=== PATIENT | male | born 1960 | race Caucasian/White ===

== ENCOUNTER 2017-09-12 16:37 | Emergency (ER) | payer OTHER ==
[~2017-09-12] VITALS: Ht 185.4 cm; Wt 84.8 kg
--- OUTSIDE RECORDS SUMMARY | ~2017-09-12 | XMS | Clinical Summary ---
Demographics + + + | Address | [address] | | | [place] [address] | + + + | Home Phone | | + + + | Preferred Language | Unknown | + + + | Marital Status | Single | + + + | Hindu Affiliation | Unknown | + + + | Race | Unknown | + + + | Ethnic Group | Other Race | + + + Author + + + | Author | [facility] | + + + | Organization | [facility] | + + + | Address | Unknown | + + + | Phone | Unavailable | + + + Care Team Providers + +------+ + | Care Seafood Clerk Name | Role | Phone | + +------+ + PP | Unavailable | + +------+ + Source Comments ANNMARIE is fully live on both [facility] Ambulatory and [facility] InPatient.[facility] Allergies Not on File Current Medications Not on file Active Problems Not on file Social History + +-------+ +--------+------+ | Tobacco Use | Types | Packs/Day | Years | Date | | | | | Used | | + +-------+ +--------+------+ | Never Assessed | | | | | + +-------+ +--------+------+ + + + | Sex Assigned at | Date Recorded | | | | + + + | Not on file | | + + + Plan of Treatment + + + + + | Health Maintenance | Due Date | Last Done | Comments | + + + + + | INFLUENZA VACCINE | | | | | (FLU SHOT) | 7 | | | + + + + + Results Not on filefrom Last 3 Months"
--- OUTSIDE RECORDS SUMMARY | ~2017-09-12 | XMS ---
Demographics + + + | Address | [address] | | | [place] [address] | + + + | Preferred Language | Unknown | + + + | Marital Status | Unknown | + + + | Anabaptism Affiliation | Unknown | + + + | Race | Unknown | + + + | Ethnic Group | Unknown | + + + Author + + + | Author | [facility] | + + + | Organization | [facility] | + + + | Address | [address] | | | [place] [address] | + + + | Phone | | + + + Care Team Providers + + + + | Care Veneer Taping Machine Operator Name | Role | Phone | + + + + Unavailable | Unavailable | + + + + PROBLEMS + + + + + + + + | Type | Condition | ICD9-CM | [id number] | Onset | Condition | SNOMED | | | | Code | Code | Dates | Status | Code | + + + + + + + + | Problem | Dyslipidem | E78.5 | | | Active | [id number] | | | ia | | | | | | + + + + + + + + | Problem | Hepatitis | | B19.20 | | Active | 34023134 | | | C | | | | | | + + + + + + + + | Problem | Colonic | | K63.5 | | Active | 95530099 | | | polyp | | | | | | + + + + + + + + | Assessment | Encounter | | Z13.9 | 18 Oct, | Active | | | | for | | | 2016 | | | | | screening, | | | | | | | | | | | | | | | | unspecifie | | | | | | | | d | | | | | | + + + + + + + + | Assessment | Depression | Z13.89 | | 18 Oct, | Active | [id number] | | | screen | | | 2016 | | | + + + + + + + + | Assessment | CAD | | I25.10 | 18 Oct, | Active | 07052702 | | | (coronary | | | 2016 | | | | | artery | | | | | | | | disease) | | | | | | + + + + + + + + | Problem | Constipati | | K59.00 | | Active | 19596255 | | | on | | | | | | + + + + + + + + | Problem | CAD | | I25.10 | | Active | 00543710 | | | (coronary | | | | | | | | artery | | | | | | | | disease) | | | | | | + + + + + + + + | Problem | Screening | Z12.5 | | | Active | 706667251 | | | for | | | | | | | | prostate | | | | | | | | cancer | | | | | | + + + + + + + + | Problem | Essential | | I10 | | Active | 04822059 | | | (primary) | | | | | | | | hypertensi | | | | | | | | on | | | | | | + + + + + + + + | Problem | Headache | | R51 | | Active | 11091964 | + + + + + + + + | Problem | Anxiety | F41.9 | | | Active | 650932081 | | | disorder | | | | | | + + + + + + + + ALLERGIES + + + + +---------+ | Substance | Reaction | Event Type | Date | Status | + + + + +---------+ | N.K.D.A. | Unknown | Non Drug | Oct, | Unknown | | | | Allergy | | | + + + + +---------+ SOCIAL HISTORY No smoking Hx information available PLAN OF CARE + +---------+ | Activity | Details | + +---------+ +---+ | | +---+ + + + | Pending Test | PSA | + + + | | February 2017,Reason: | + + + VITAL SIGNS + + + + | Height | 74 in | 2016-11-07 | + + + + | Weight | 201.0 lbs | 2016-11-07 | + + + + | BMI | 25.80 kg/m2 | 2016-11-07 | + + + + | Temperature | 97.9 degrees Fahrenheit | 2016-11-07 | + + + + | Heart Rate | 53 /min | 2016-11-07 | + + + + | Blood pressure systolic | 149 mm Hg | 2016-11-07 | + + + + | Blood pressure diastolic | 92 mm Hg | 2016-11-07 | + + + + MEDICATIONS + + + + + + + +--------+ | Medicati | Instruct | Dosage | Frequenc | Start | End Date | Duration | Status | | on | ions | | y | Date | | | | + + + + + + + +--------+ | Clopidog | Orally | 1 tablet | 24h | | | | Active | | rel | Once a | | | | | | | | Bisulfat | day | | | | | | | | e 75 MG | | | | | | | | + + + + + + + +--------+ | Lipitor | Orally | 1 tablet | | | | | Active | | 40 mg | Once a | | | | | | | | | day in | | | | | | | | | the | | | | | | | | | evening | | | | | | | + + + + + + + +--------+ | Magnesiu | | | | | | | Active | | m | | | | | | | | + + + + + + + +--------+ | Lisinopr | Orally | 1 tablet | | | | | Active | | il 20 mg | Once a | | | | | | | | | day in | | | | | | | | | the | | | | | | | | | morning | | | | | | | + + + + + + + +--------+ | Magnesiu | Orally | as | | 18 Apr, | | | Active | | m | daily as | directed | | 2017 | | | | | Citrate | needed | | | | | | | | 1.745 | for | | | | | | | | GM/30ML | constipa | | | | | | | | | tion | | | | | | | + + + + + + + +--------+ | Pepcid | Orally | 1 tablet | 12h | | | | Active | | 20 MG | Twice a | | | | | | | | | day | | | | | | | + + + + + + + +--------+ | Yoga . | | as | | Feb, | | | Active | | | | directed | | 2015 | | | | | | | for | | | | | | | | | anxiety | | | | | | + + + + + + + +--------+ | Aspirin | Oral | 1 tab | 24h | | | | Active | | 81 mg | daily | | | | | | | + + + + + + + +--------+ | Metoprol | Orally | 1 tablet | | | | | Active | | ol | Once a | | | | | | | | Succinat | day in | | | | | | | | e ER 25 | the | | | | | | | | MG | morning | | | | | | | + + + + + + + +--------+ | Misc | Orally | Moringa | | Feb, | | | Active | | Natural | daily | oleifera | | 2016 | | | | | Product | for | 2 | | | | | | | . | anxiety | packets | | | | | | | | | or 2 | | | | | | | | | capsules | | | | | | + + + + + + + +--------+ | Kings Grant | Orally | 2 tablet | 12h | | | | Active | | Carbonat | Twice a | in the | | | | | | | e 300 MG | day | morning | | | | | | | | | and 1 at | | | | | | | | | night | | | | | | + + + + + + + +--------+ RESULTS No Results PROCEDURES + + + + + | Procedure | Date Ordered | Related Diagnosis | Body Site | + + + + + | Administration of | November 07, 2016 | | | | patient-focused | | | | | health risk | | | | | assessment | | | | + + + + + | Est Level III | November 07, 2016 | | | | Intermediate | | | | + + + + + IMMUNIZATIONS No Known Immunizations"
--- OUTSIDE RECORDS SUMMARY | ~2017-09-12 | XMS ---
Demographics + + + | Address | [address] | | | [place] [address] | + + + | Preferred Language | Unknown | + + + | Marital Status | Unknown | + + + | Protestant Affiliation | Unknown | + + + | Race | Unknown | + + + | Ethnic Group | Unknown | + + + Author + + + | Author | [facility] | + + + | Organization | [facility] | + + + | Address | [address] | | | [place] [address] | + + + | Phone | | + + + Care Team Providers + + + + | Care Historiography Professor Name | Role | Phone | + + + + Unavailable | Unavailable | + + + + PROBLEMS +---------+ + + +--------+ + + | Type | Condition | ICD9-CM | NPD14-[id number] | Onset | Condition | SNOMED | | | | Code | Code | Dates | Status | Code | +---------+ + + +--------+ + + | Problem | Colonic | | K63.5 | | Active | 38453815 | | | polyp | | | | | | +---------+ + + +--------+ + + | Problem | Dyslipidem | E78.5 | | | Active | 783712809 | | | ia | | | | | | +---------+ + + +--------+ + + | Problem | Constipati | | K59.00 | | Active | 77210965 | | | on | | | | | | +---------+ + + +--------+ + + | Problem | CAD | | I25.10 | | Active | 28605882 | | | (coronary | | | | | | | | artery | | | | | | | | disease) | | | | | | +---------+ + + +--------+ + + | Problem | Essential | | I10 | | Active | 59847247 | | | (primary) | | | | | | | | hypertensi | | | | | | | | on | | | | | | +---------+ + + +--------+ + + | Problem | Hepatitis | | B19.20 | | Active | 25824278 | | | C | | | | | | +---------+ + + +--------+ + + | Problem | Anxiety | F41.9 | | | Active | 398945576 | | | disorder | | | | | | +---------+ + + +--------+ + + | Problem | Screening | Z12.5 | | | Active | [id number] | | | for | | | | | | | | prostate | | | | | | | | cancer | | | | | | +---------+ + + +--------+ + + ALLERGIES + + + + +---------+ | Substance | Reaction | Event Type | Date | Status | + + + + +---------+ | N.K.D.A. | Unknown | Non Drug | Feb, | Unknown | | | | Allergy | | | + + + + +---------+ SOCIAL HISTORY No smoking Hx information available PLAN OF CARE + +---------+ | Activity | Details | + +---------+ +---+ | | +---+ + + + | Follow Up | 6 Months Reason:null | + + + VITAL SIGNS + + + + | Height | 74 in | 2017-03-19 | + + + + | Weight | 194.4 lbs | 2017-03-19 | + + + + | BMI | 24.96 kg/m2 | 2017-03-19 | + + + + | Temperature | 99.4 degrees Fahrenheit | 2017-03-19 | + + + + | Heart Rate | 65 /min | 2017-03-19 | + + + + | Blood pressure systolic | 137 mm Hg | 2017-03-19 | + + + + | Blood pressure diastolic | 83 mm Hg | 2017-03-19 | + + + + MEDICATIONS + + + + + + + +--------+ | Medicati | Instruct | Dosage | Frequenc | Start | End Date | Duration | Status | | on | ions | | y | Date | | | | + + + + + + + +--------+ | Clopidog | Orally | 1 tablet | | | | | Active | | rel | Once a | | | | | | | | Bisulfat | day in | | | | | | | | e 75 mg | the | | | | | | | | | morning | | | | | | | + + + + + + + +--------+ | Aspirin | Oral | 1 tab | | | | | Active | | 81 mg | daily at | | | | | | | | | night | | | | | | | [...] | | | | | MG | night | | | | | | | [...] + + + + + +--------+ | Moringa | Orally 2 | as | | Feb, | | | Active | | Olifara | packets | directed | | 2016 | | | | | (Heladio) | BID | | | | | | | [...] + + + + + +--------+ | CeraVe - | External | as | 24h | 28 Feb, | | | Active | | | ly Once | directed | | 2016 | | | | | | a day | | | | | | | + + + + + + + +--------+ | KLS | Orally | as | | Feb, | | | Active | | LaxaClea | 17 gm | directed | | 2016 | | | | | r - | daily | | | | | | | | | for | | | | | | | | | constipa | | | | | | | | | tion | | | | | | | + + + + + + + +--------+ | Port Jervis | Orally | 2 tablet | 12h [...] + + + + + +--------+ | Neuro-Ma | Orally | 3 | 24h | Feb, | | | Active | | g | Once a | tablets | | 2016 | | | | | | day | | | | | | | + + + + + + + +--------+ RESULTS No Results PROCEDURES + + + + + | Procedure | Date Ordered | Related Diagnosis | Body Site | + + + + + | EST Pt. Level V | Mar 19, 2017 | | | | Comprehensive | | | | + + + + + | DSCHRG MED/CURRENT | Mar 19, 2017 | | | | MED MERGE | | | | + + + + + | ASPIRIN/OTH | Mar 19, 2017 | | | | ANTITHROMBOTIC [place] | | | | | USED | | | | + + + + + | COLORECTAL CA | Mar 19, 2017 | | | | SCREEN DOC REV | | | | + + + + + IMMUNIZATIONS No Known Immunizations"
--- OUTSIDE RECORDS SUMMARY | ~2017-09-12 | XMS ---
Demographics + + + | Address | [address] | | | [place] [address] | + + + | Preferred Language | Unknown | + + + | Marital Status | Unknown | + + + | Latter-Day Affiliation | Unknown | + + + | Race | Unknown | + + + | Ethnic Group | Unknown | + + + Author + + + | Author | [facility] | + + + | Organization | [facility] | + + + | Address | [address] | | | [place] [address] | + + + | Phone | | + + + Care Team Providers + + + + | Care Buffer Copper Name | Role | Phone | + + + + Unavailable | Unavailable | + + + + PROBLEMS +---------+ + + +--------+ + + | Type | Condition | ICD9-CM | [id number] | Onset | Condition | SNOMED | | | | Code | Code | Dates | Status | Code | +---------+ + + +--------+ + + | Problem | Colonic | | K63.5 | | Active | 27165969 | | | polyp | | | | | | +---------+ + + +--------+ + + | Problem | Dyslipidem | E78.5 | | | Active | 153285519 | | | ia | | | | | | +---------+ + + +--------+ + + | Problem | Constipati | | K59.00 | | Active | 81705978 | | | on | | | | | | +---------+ + + +--------+ + + | Problem | CAD | | I25.10 | | Active | 61472158 | | | (coronary | | | | | | | | artery | | | | | | | | disease) | | | | | | +---------+ + + +--------+ + + | Problem | Essential | | I10 | | Active | 59292067 | | | (primary) | | | | | | | | hypertensi | | | | | | | | on | | | | | | +---------+ + + +--------+ + + | Problem | Hepatitis | | B19.20 | | Active | 64875422 | | | C | | | | | | +---------+ + + +--------+ + + | Problem | Anxiety | F41.9 | | | Active | 819820787 | | | disorder | | | | | | +---------+ + + +--------+ + + | Problem | Screening | Z12.5 | | | Active | 408538627 | | | for | | | | | | | | prostate | | | | | | | | cancer | | | | | | +---------+ + + +--------+ + + ALLERGIES Unknown Allergies SOCIAL HISTORY No smoking Hx information available PLAN OF CARE VITAL SIGNS MEDICATIONS Unknown Medications RESULTS No Results PROCEDURES No Known procedures IMMUNIZATIONS No Known Immunizations"
--- OUTSIDE RECORDS SUMMARY | ~2017-09-12 | XMS | Clinical Summary ---
Demographics + + + | Address | [address] | | | [place] [address] | + + + | Home Phone | | + + + | Preferred Language | Unknown | + + + | Marital Status | Single | + + + | Methodist Affiliation | Unknown | + + + | Race | Unknown | + + + | Ethnic Group | Other Race | + + + Author + + + | Author | [facility] | + + + | Organization | [facility] | + + + | Address | Unknown | + + + | Phone | Unavailable | + + + Care Team Providers + +------+ + | Care Maritime Officer Name | Role | Phone | + +------+ + PP | Unavailable | + +------+ + Source Comments ANNMARIE is fully live on both [facility] and [facility] InPatient.[facility] Allergies Not on File Current Medications Not [...]
--- OUTSIDE RECORDS SUMMARY | ~2017-09-12 | XMS ---
Demographics + + + | Address | [address] | | | [place] [address] | + + + | Preferred Language | Unknown | + + + | Marital Status | Unknown | + + + | Congregational Affiliation | Unknown | + + + | Race | Unknown | + + + | Ethnic Group | Unknown | + + + Author + + + | Author | [facility] | + + + | Organization | [facility] | + + + | Address | [address] | | | [place] [address] | + + + | Phone | | + + + Care Team Providers + + + + | Care Instructional Support Specialist Name | Role | Phone | + + + + Unavailable | Unavailable | + + + + PROBLEMS + + + + + + + + | Type | Condition | ICD9-CM | [id number] | Onset | Condition | SNOMED | | | | Code | Code | Dates | Status | Code | + + + + + + + + | Problem | Dyslipidem | E78.5 | | | Active | 291430846 | | | ia | | | | | | + + + + + + + + | Problem | Hepatitis | | B19.20 | | Active | 55545574 | | | C | | | | | | + + + + + + + + | Problem | Colonic | | K63.5 | | Active | 78570265 | | | polyp | | | | | | + + + + + + + + | Assessment | Abdominal | | R10.32 | 27 November, | Active | 254070976 | | | pain, left | | | 2016 | | | | | lower | | | | | | | | quadrant | | | | | | + + + + + + + + | Assessment | Colonic | | K63.5 | 08 November, | Active | 09538516 | | | polyp | | | 2017 | | | + + + + + + + + | Problem | Constipati | | K59.00 | | Active | 33368551 | | | on | | | | | | + + + + + + + + | Problem | CAD | | I25.10 | | Active | 37925869 | | | (coronary | | | | | | | | artery | | | | | | | | disease) | | | | | | + + + + + + + + | Problem | Screening | Z12.5 | | | Active | 434428613 | | | for | | | | | | | | prostate | | | | | | | | cancer | | | | | | + + + + + + + + | Problem | Essential | | I10 | | Active | 22538768 | | | (primary) | | | | | | | | hypertensi | | | | | | | | on | | | | | | + + + + + + + + | Problem | Headache | | R51 | | Active | 09692041 | + + + + + + + + | Problem | Anxiety | F41.9 | | | Active | 418829680 | | | disorder | | | | | | + + + + + + + + ALLERGIES Unknown Allergies SOCIAL HISTORY No smoking Hx information available PLAN OF CARE VITAL SIGNS MEDICATIONS Unknown Medications RESULTS No Results PROCEDURES No Known procedures IMMUNIZATIONS No Known Immunizations"
--- OUTSIDE RECORDS SUMMARY | ~2017-09-12 | XMS ---
Demographics + + + | Address | [address] | | | [place] [address] | + + + | Preferred Language | Unknown | + + + | Marital Status | Unknown | + + + | Orthodox Affiliation | Unknown | + + + | Race | Unknown | + + + | Ethnic Group | Unknown | + + + Author + + + | Author | [facility] | + + + | Organization | [facility] | + + + | Address | [address] | | | [place] [address] | + + + | Phone | | + + + Care Team Providers + + + + | Care Motorcyles Final Inspector Name | Role | Phone | + + + + Unavailable | Unavailable | + + + + PROBLEMS +---------+ + + +--------+ + + | Type | Condition | ICD9-CM | [id number] | Onset | Condition | SNOMED | | | | Code | Code | Dates | Status | Code | +---------+ + + +--------+ + + | Problem | Dyslipidem | E78.5 | | | Active | 073015234 | | | ia | | | | | | +---------+ + + +--------+ + + | Problem | Hepatitis | | B19.20 | | Active | 98875969 | | | C | | | | | | +---------+ + + +--------+ + + | Problem | Colonic | | K63.5 | | Active | 05498351 | | | polyp | | | | | | +---------+ + + +--------+ + + | Problem | Constipati | | K59.00 | | Active | 41281650 | | | on | | | | | | +---------+ + + +--------+ + + | Problem | CAD | | I25.10 | | Active | 57286261 | | | (coronary | | | | | | | | artery | | | | | | | | disease) | | | | | | +---------+ + + +--------+ + + | Problem | Screening | Z12.5 | | | Active | 148715712 | | | for | | | | | | | | prostate | | | | | | | | cancer | | | | | | +---------+ + + +--------+ + + | Problem | Essential | | I10 | | Active | 33995903 | | | (primary) | | | | | | | | hypertensi | | | | | | | | on | | | | | | +---------+ + + +--------+ + + | Problem | Headache | | R51 | | Active | 67627946 | +---------+ + + +--------+ + + | Problem | Anxiety | F41.9 | | | Active | 824694271 | | | disorder | | | | | | +---------+ + + +--------+ + + ALLERGIES Unknown Allergies SOCIAL HISTORY No smoking Hx information available PLAN OF CARE + +---------+ | Activity | Details | + +---------+ +---+ | | +---+ + + + | Pending Test | TSH+Free T4 | + + + | Pending Test | Lipid Panel | + + + | Pending Test | Renal Function Panel | + + + | Pending Test | Hepatic Function Panel | + + + | Pending Test | Supai | + + + | Pending Test | PSA | + + + | Pending Test | Vitamin D 25-OH | + + + | Pending Test | HCV RNA Quant by PCR | + + + | Pending Test | CBC with Differential Count | + + + VITAL SIGNS MEDICATIONS Unknown Medications RESULTS No Results PROCEDURES No Known procedures IMMUNIZATIONS No Known Immunizations"
[~2017-09-12 16:37] MED LIST: AMLODIPINE BESYL5 MG PO; ASPIRIN EC81 MG PO; CITALOPRAM HBR20 MG PO; CLONIDINE HCL0.1 MG PO; LISINOPRIL20 MG PO; LITHIUM CARBON300 M1 PO; MULTI VITAMIN1 EACH PO
[2017-09-12] MEDS ORDERED: ATORVASTATIN CA40 MG PO (16:48)
[2017-09-12] MEDS ORDERED: METOPROLOL SUCC25 MG PO (16:49)
--- NOTE | 2017-09-12 22:42 | EKG ---
[facility] [address] [facility] [place] [address] Signed Normal sinus rhythm Normal ECG No previous ECGs available Confirmed by AMBROSE MEEKS MD ([id number]) on 09/12/2017 10:42:29 PM Electronically Signed By: AMBROSE MEEKS MD 09/12/17 2242 PATIENT NAME: LATHA CARPENTER ELLEN Electrocardiogram DATE OF : 60 PHYSICIAN: AMBROSE MEEKS MD REPORT #: [id number] REPORT IS CONFIDENTIAL AND NOT TO BE RELEASED WITHOUT AUTHORIZATION
== END 2017-09-12 19:27 | disposition home or self-care (01) ==
LOC: ED 16:37
DX: R07.9 Chest pain, unspecified (principal); I10 Essential (primary) hypertension; E78.5 Hyperlipidemia, unspecified; Z79.82 Long term (current) use of aspirin; Z79.899 Other long term (current) drug therapy
CPT/HCPCS: 36415; 71046; 80053; 84484; 85025; 93005; 93010; 99284

== ENCOUNTER 2024-07-22 07:43 | Day surgery (SDC) | payer OTHER ==
[~2024-07-22] VITALS: Ht 185.4 cm; Wt 98.4 kg
[~2024-07-22 07:43] MED LIST changes: +ATORVASTATIN CA40 MG PO; +IBLOOD GLUCOSE TEST STRIP 1 EA TEST VI PRN; +LACTATED RINGER'S 1,000 ML IV SCH; +LEVOTHYROXINE25 MC1 PO; +LIDOCAINE HCL 1% 5 ML SDV INJ ONE; +METOPROLOL SUCC25 MG PO; +MIDAZOLAM HCL 5 MG/5 ML VIAL IV PRN; +NORVASC5 MG PO; +PREDNISONE20 MG PO; +VESICARE5 MG PO; +fentaNYL citrate 100 MCG/2 ML VIAL IV PRN
[2024-07-22 08:11] VITALS: BP 123/78
[2024-07-22] MEDS ORDERED: TAMSULOSIN HCL0.4 MG PO (08:17)
[2024-07-22] MEDS ORDERED: fentaNYL citrate 100 MCG/2 ML VIAL ONE (08:55)
[2024-07-22] MEDS ORDERED: MIDAZOLAM HCL 5 MG/5 ML VIAL ONE (08:55)
--- NOTE | 2024-07-22 09:44 | NUR ---
07/22/24 0944 Lorna Ornelas PATIENT ARRIVES TO PACU ON 2L O2 VIA NC. OXYGEN IS IS TURNED OFF UPON ARRIVAL - SATURATION 98%
[2024-07-22 10:16] VITALS: BP 131/97
--- NOTE | 2024-07-22 11:16 | OR ---
[facility] [address], [place] [address] Signed DATE OF OPERATION: 07/22/2024 SURGEON: Philippe Montano MD PREOPERATIVE DIAGNOSES: 1. Maternal grandmother with colon cancer, age 70-80. 2. Mom with colonic polyps at age 66. 3. Personal history of colonic polyps in 2008 at age 48. 4. Diverticulosis. 5. Constipation. POSTOPERATIVE DIAGNOSES: 1. Tortuous sigmoid colon. 2. Long redundant colon. 3. Moderate left-sided diverticulosis. PROCEDURE: Colonoscopy without biopsy. ESTIMATED BLOOD LOSS: None. INDICATIONS: Latha is a 64-year-old gentleman, who asked to see me for his fourth colonoscopy. His maternal grandmother had of colon cancer right at about 78 to 80 years old. His mom also had colonic polyps when she was 66 years old. He came to me in 2007 at the age of 48 because of guaiac-positive stool. That was his initial colonoscopy. He had a serrated adenomatous polyp and hyperplastic polyps, both less than 4 mm in diameter. He had diverticulosis. He did well on versed and fentanyl. He came back in 2013 at age of 53 and had hyperplastic polyps removed. Again, the diverticulosis. He did well on Versed and fentanyl. He then came back in 2019 at the age of 59 and did well with 6 mg of Versed and 125 mcg of fentanyl. Once again, he has diverticulosis. He said he has been running a bit constipated and so he has been using MiraLAX with good results. He actually went to see Dr. Demetrio Francisco back in 2016 as his crm specialist. He took prunes and the MiraLAX and that is all resolved. He also had a CT scan of the abdomen and pelvis at that time and it showed all of the stool. Dr. Francisco asked him to follow up as needed. He asked him to continue to see me for ongoing colonoscopies. He had taken a 1/2 bottle of magnesium citrate and three bottles of the Gatorade with the polyethylene glycol. That had worked out quite nicely back in 2019. In addition, he goes to see his mold breaker, Dr. Beaver, every year. He said that it has been going Electronically Signed By: PHILIPPE MONTANO MD 07/22/24 1116 PATIENT NAME: LATHA CARPENTER OPERATIVE REPORT DATE OF : 60 REPORT #: [id number] PHYSICIAN: PHILIPPE MONTANO MD PCP: IRMA RAMOS MD REPORT IS CONFIDENTIAL AND NOT TO BE RELEASED WITHOUT AUTHORIZATION [facility] [address], [place] [address] Signed well. He stays very active at his ideal body weight. In the office, I gave him a brochure on colonoscopy. He recalls the nature of the test. There is risk including, but not limited to gas bloating, crampy abdominal pain, bleeding, perforation requiring surgery, and missed diagnosis. We also went back over this bowel prep once again. It is the same bowel prep he has taken previously. On this occasion, he wanted to use the Dulcolax tablets with three bottles of Gatorade and polyethylene glycol. Unfortunately it was not quite as good with the magnesium citrate. He probably needs to increase that bowel prep in the future. He recalls the need for the IV conscious sedation. Again, he always does well with versed and fentanyl. He understands an adult person has to take him home afterwards. That usually is his . We did ask him to hold his aspirin 3 days prior to the procedure as well. He had expressed understanding and wished to proceed. DESCRIPTION OF PROCEDURE: Latha was taken into our endoscopy suite, placed in the left lateral decubitus position. He was given 5 mg of Versed and 125 mcg of fentanyl to cover the case. A digital rectal exam was performed. He had good sphincter tone. No external hemorrhoids. No masses. His prostate is indurated and prominent on both sides. The adult colonoscope had been introduced and advanced under direct visualization of camera. This time it took us a while to get through the tortuous sigmoid colon. We had to give him some extra sedation in that regard. We encountered some areas of liquid particulate stool matter. Most of that was irrigated and suctioned out on the way in. We had to use a little abdominal compression to eventually get down into the cecum itself. We could easily see the appendiceal orifice and the ileocecal valve. The scope was then slowly withdrawn. We saw no polyps on this occasion. He does have some diverticula in the left colon. They were moderate in size, few in number and scattered about. We came back into the rectum, the scope had been retroflexed. We did not see any additional pathology above the anal canal. After this, the gas was suctioned out, colonoscope removed. Scott tolerated the procedure well overall. RECOMMENDATIONS: Scott can return in 5 years for both his family and personal history. He should probably use magnesium citrate in the future followed by at least 3/4th of a gallon if not a full gallon of polyethylene glycol to improve his bowel prep. Philippe Montano MD ALB/MODL Electronically Signed By: PHILIPPE MONTANO MD 07/22/24 1116 PATIENT NAME: LATHA CARPENTER OPERATIVE REPORT DATE OF : 60 REPORT #: [id number] PHYSICIAN: PHILIPPE MONTANO MD PCP: IRMA RAMOS MD REPORT IS CONFIDENTIAL AND NOT TO BE RELEASED WITHOUT AUTHORIZATION [address] [place], [place] [address] Signed /[id number] cc: MD Irma Burgos MD Mershed Alsamara, MD Copies: PHILIPPE MONTANO MD, MERSHED MD ~ Electronically Signed By: PHILIPPE MONTANO MD 07/22/24 1116 PATIENT NAME: LATHA CARPENTER OPERATIVE REPORT DATE OF : 60 REPORT #: [id number] PHYSICIAN: PHILIPPE MONTANO MD PCP: IRMA RAMOS MD REPORT IS CONFIDENTIAL AND NOT TO BE RELEASED WITHOUT AUTHORIZATION
== END 2024-07-22 10:24 | disposition home or self-care (01) ==
LOC: DS 07:43
PROVIDERS: ATTEND Colon & Rectal Surgery
PROC: 0DJD8ZZ Inspection of Lower Intestinal Tract, Via Natural or Artificial Opening Endoscopic (ICD-10-PCS; principal; 2024-07-22 09:00)
DX: Z12.11 Encounter for screening for malignant neoplasm of colon (principal); K57.30 Diverticulosis of large intestine without perforation or abscess without bleeding; K63.89 Other specified diseases of intestine; I25.10 Atherosclerotic heart disease of native coronary artery without angina pectoris; I10 Essential (primary) hypertension; E78.5 Hyperlipidemia, unspecified; F31.9 Bipolar disorder, unspecified; E03.2 Hypothyroidism due to medicaments and other exogenous substances; N40.0 Benign prostatic hyperplasia without lower urinary tract symptoms; G47.33 Obstructive sleep apnea (adult) (pediatric); Z86.0102 Personal history of hyperplastic colon polyps; Z87.891 Personal history of nicotine dependence; Z79.890 Hormone replacement therapy; Z79.82 Long term (current) use of aspirin; Z79.899 Other long term (current) drug therapy; Z88.8 Allergy status to other drugs, medicaments and biological substances; Z95.5 Presence of coronary angioplasty implant and graft; Z80.0 Family history of malignant neoplasm of digestive organs
CPT/HCPCS: 99153; G0500; J2250; J3010; J7121